=== PATIENT | male | born 1940 | race Caucasian/White ===

== ENCOUNTER → 2016-09-23 | Outpatient (CLI) | payer MEDICARE, OTHER | END | disposition home or self-care (01) | LOC: LAB.O 14:12 | PROVIDERS: ATTEND Family Medicine | DX: D45 Polycythemia vera (principal) ==

== ENCOUNTER → 2016-12-21 | Outpatient (CLI) | payer MEDICARE, OTHER ==
--- NOTE | 2016-12-22 11:13 | MRI ---
MRI left knee without contrast INDICATION: Knee pain no specific injury chronic initial encounter TECHNIQUE: Noncontrast MR imaging left knee standard protocol FINDINGS: Large joint effusion with synovitis/debris. There is a diffuse ill-defined chronic appearing interstitial tear with mucoid degeneration/ganglion formation involving the ACL. There is diffuse interstitial degeneration of the PCL but no complete rupture. No acute pivot shift injury. Extensor tendons demonstrate mild tendinosis without rupture. There is prepatellar and superficial infrapatellar bursal edema. There is advanced osteoarthrosis of the medial tibiofemoral compartment with diffuse grade 4 chondrosis subchondral cystic changes and edema. Diffuse degenerative tear medial meniscus with volume loss and delamination of the posterior horn. Partial medial meniscal extrusion. Diffuse degenerative change lateral meniscus as well. Prominent marginal osteophytes. Probable small intra-articular body along the PCL coronal series 701 image #29. Additional small body anterior midline coronal series 701 image 15. Joint space narrowing is most advanced in the medial tibiofemoral compartment. There is grade 4 chondral fissuring in the medial patellar facet with more generalized lower grade multifocal chondrosis in the remainder of the patellofemoral joint with joint line osteophytes. IMPRESSION: Large joint effusion with synovitis Several small intra-articular bodies anterior and posterior midline Advanced osteoarthrosis medial tibiofemoral compartment with lower grade osteoarthrosis in the remainder of the knee Diffuse degenerative tear medial meniscus with partial extrusion Mild degenerative changes lateral meniscus Chronic interstitial partial tear ACL with mucoid degeneration/ganglion formation Previous interstitial partial tear PCL with interstitial increased signal. Electronically signed by: Marcelino Paredes MD 12/22/2016 11:12 AM CDT
--- NOTE | 2016-12-22 11:50 | MRI ---
MRI right knee without contrast INDICATION: Knee pain chronic osteoarthrosis TECHNIQUE: Noncontrast MR imaging right knee FINDINGS: Large joint effusion with synovitis. Prepatellar and superficial infrapatellar bursal edema. Minimal lateral patellar tracking. Multifocal grade 4 chondrosis throughout the patella with multifocal mild subchondral edema. Interstitial mucoid degeneration of the ACL and mild degenerative signal within the PCL indicating remote partial tears. Diffuse grade 4 chondrosis with subchondral edema and cystic changes in the medial tibiofemoral compartment. Diffuse degenerative tear medial meniscus with volume loss. Multifocal intraosseous cystic change/ganglion formation midline tibial plateau related to the ACL attachment. Mild multifocal extensor tendinosis. Diffuse degenerative horizontal cleavage tear lateral meniscus with free edge fraying and mild truncation. Multifocal chondral fissuring up to grade 4 in the lateral tibiofemoral compartment. Collateral ligaments are intact. IMPRESSION: Tricompartmental chondrosis and osteoarthrosis right knee most severe in the medial tibiofemoral compartment Large joint effusion with synovitis Degenerative meniscal tears medial and lateral Previous interstitial partial tear ACL with interstitial mucoid degeneration/ganglion formation Mild remote interstitial injury PCL Electronically signed by: Marcelino Paredes MD 12/22/2016 11:49 AM CDT
== END | disposition home or self-care (01) ==
LOC: MRI 10:55
PROVIDERS: ATTEND Specialist
DX: M17.0 Bilateral primary osteoarthritis of knee (principal)

== ENCOUNTER → 2017-07-17 | Outpatient (CLI) | payer MEDICARE, OTHER | LOC: GMAM 14:45 | PROVIDERS: ATTEND Family Medicine | DX: E29.8 Other testicular dysfunction (principal); Z12.5 Encounter for screening for malignant neoplasm of prostate | CPT/HCPCS: 84403; G0103 ==

== ENCOUNTER → 2017-07-27 | Outpatient (CLI) | payer MEDICARE, OTHER | LOC: LAB.O 14:45 | PROVIDERS: ATTEND Family Medicine | DX: D75.1 Secondary polycythemia (principal) ==

== ENCOUNTER → 2018-02-07 | Outpatient (CLI) | payer MEDICARE, OTHER | LOC: GMAM 15:03 | PROVIDERS: ATTEND Family Medicine | DX: E29.8 Other testicular dysfunction (principal) ==

== ENCOUNTER → 2018-08-09 | Outpatient (CLI) | payer MEDICARE, OTHER | LOC: GMAM 12:31 | PROVIDERS: ATTEND Family Medicine | DX: E29.1 Testicular hypofunction (principal); Z12.5 Encounter for screening for malignant neoplasm of prostate | CPT/HCPCS: 84403; G0103 ==

== ENCOUNTER → 2018-08-16 | Outpatient (CLI) | payer MEDICARE, OTHER ==
--- NOTE | 2018-08-17 08:31 | CT ---
EXAM: Chest w/Contrast CLINICAL HISTORY: ABNORMAL CHEST XRAY COMPARISON STUDY: None. TECHNICAL: Post contrast CT images were performed through the chest. Sagittal and coronal reconstructions were acquired. FINDINGS: Soft tissue or mediastinal windows demonstrate no mass or lymphadenopathy. The heart is not enlarged. The aorta is non-dilated. There is no sign of an aortic dissection. The pulmonary arterial system as imaged is negative. The limited images of the upper abdomen are negative. Pulmonary parenchymal windows show no mass, consolidation, interstitial pulmonary edema, or pleural effusion. There are mild diffuse age-appropriate degenerative changes of the thoracic spine. IMPRESSION: NEGATIVE CT CHEST WITH CONTRAST. This exam was performed according to our departmental dose-optimization program, which includes automated exposure control, adjustment of the mA and/or kV according to patient size and/or use of iterative reconstruction technique. Electronically signed by: Jayjay Tompkins MD 08/17/2018 8:28 AM CDT
== END ==
LOC: CT 10:30
PROVIDERS: ATTEND Family Medicine
DX: R91.8 Other nonspecific abnormal finding of lung field (principal); D75.1 Secondary polycythemia

== ENCOUNTER → 2018-09-17 | Outpatient (CLI) | payer MEDICARE, OTHER | LOC: GMAM 14:27 | PROVIDERS: ATTEND Family Medicine | DX: R79.9 Abnormal finding of blood chemistry, unspecified (principal) ==

== ENCOUNTER → 2019-02-21 | Outpatient (CLI) | payer MEDICARE, OTHER | LOC: LAB.O 15:13 | PROVIDERS: ATTEND Family Medicine | DX: D75.1 Secondary polycythemia (principal) ==

== ENCOUNTER → 2019-10-10 | Outpatient (CLI) | payer MEDICARE, OTHER | LOC: GMAM 17:49 | PROVIDERS: ATTEND Family Medicine | DX: L02.91 Cutaneous abscess, unspecified (principal) ==

== ENCOUNTER → 2019-11-19 | Outpatient (CLI) | payer MEDICARE, OTHER | LOC: GMAM 16:35 | PROVIDERS: ATTEND Family Medicine | DX: M15.0 Primary generalized (osteo)arthritis (principal) ==

== ENCOUNTER → 2019-11-25 | Outpatient (CLI) | payer MEDICARE, OTHER | LOC: GMAM 14:13 | PROVIDERS: ATTEND Family Medicine | DX: R06.02 Shortness of breath (principal); N40.1 Benign prostatic hyperplasia with lower urinary tract symptoms; R50.9 Fever, unspecified; R30.0 Dysuria ==

== ENCOUNTER → 2019-12-12 | Outpatient (CLI) | payer MEDICARE, OTHER ==
--- NOTE | 2019-12-12 13:39 | RAD ---
Frontal and sunrise patellar views of the right knee. Indication: PAIN IN RIGHT KNEE Comparison: None. Impression: Severe osteoarthritis of the medial knee compartment with [id number] appearance. Moderate osteoporotic changes lateral and patellofemoral compartments. No acute fracture identified. Electronically signed by: Darvin Olsen MD 12/12/2019 1:37 PM CDT
--- NOTE | 2019-12-12 13:40 | RAD ---
EXAM DESCRIPTION: Knee,Left 1 or 2 Views CLINICAL HISTORY: 79 years Male, PAIN IN LEFT KNEE COMPARISON: November 19, 2019 Findings: Two views/radiographs Location: Left knee No acute fracture or dislocation. Severe medial compartment narrowing with lateral tibial translation. Tricompartmental osteophytes. Osteopenia. IMPRESSION: Left knee osteoarthritis. No acute osseous abnormality identified. Electronically signed by: Rayshawn Matthews MD 12/12/2019 1:38 PM CDT
--- NOTE | 2019-12-12 13:43 | RAD ---
EXAM DESCRIPTION: Pelvis CLINICAL HISTORY: 79 years Male, HIP PAIN BILATERAL COMPARISON: None. Findings: One view(s)/radiograph(s) No acute fracture or dislocation. No focal soft tissue swelling. Mild bilateral hip osteoarthritis. Degenerative changes at the lumbosacral junction. Pelvic phleboliths. IMPRESSION: Mild bilateral hip osteoarthritis. No acute fracture. Electronically signed by: Rayshawn Matthews MD 12/12/2019 1:41 PM CDT
== END ==
LOC: RAD 08:06
PROVIDERS: ATTEND Orthopaedic Surgery
DX: M16.0 Bilateral primary osteoarthritis of hip (principal); M17.0 Bilateral primary osteoarthritis of knee; N40.1 Benign prostatic hyperplasia with lower urinary tract symptoms; R06.02 Shortness of breath; M81.0 Age-related osteoporosis without current pathological fracture

== ENCOUNTER → 2020-02-24 | Outpatient (CLI) | payer MEDICARE, OTHER | LOC: GMAM 16:59 | PROVIDERS: ATTEND Family Medicine | DX: R94.6 Abnormal results of thyroid function studies (principal); N40.1 Benign prostatic hyperplasia with lower urinary tract symptoms; E29.1 Testicular hypofunction; R73.9 Hyperglycemia, unspecified ==

== ENCOUNTER → 2020-03-03 | Outpatient (CLI) | payer MEDICARE, OTHER ==
--- NOTE | 2020-03-04 12:28 | MRI ---
EXAM DESCRIPTION: Brain w/wo Contrast: MRI. CLINICAL HISTORY: ABNORMAL RESULTS OF THYROID FUNCTION COMPARISON: None. TECHNIQUE: Multiplanar, high-field MRI unit, multiple sequences before and after 1 mL per 5 kg body weight, Dotarem gadolinium IV contrast. No adverse reactions. FINDINGS: The pituitary gland is normal size and signal. Occupies most of the sella. Uniform enhancement with no areas of non-enhancement or hyper enhancement. The pituitary infundibulum is in the midline with no displacement. No suprasellar mass. Normal signal and enhancement of the optic chiasm, distal optic tracts, and proximal optic nerves. Bilateral confluent hyperintense FLAIR and T2-weighted signal in the periventricular white matter frontal parietal and occipital lobes. Also multiple foci of similar signal in the subcortical white matter of the cerebral hemispheres. More predominance in the bilateral frontal lobes. No hemorrhage, no cerebral edema, no mass-effect. No abnormal contrast enhancement. Cortical sulci, ventricles, and other CSF and subdural spaces are normally configured for patients age. No effacement or displacement. No midline shift. Normal signal in the brainstem and basal ganglia. No abnormal contrast enhancement. IACs are showing no mass effect or abnormal enhancement. No fluid signal in the mastoid air cells bilaterally. Contour of the cerebellopontine angles is unremarkable with no abnormal contrast enhancement. Base of the cerebellar tonsils is above the foramen magnum. The paranasal sinuses are unremarkable. The bony calvarium negative has findings; thickening of the scalp most likely related to patient body habitus.. IMPRESSION: 1. Normal enhancement of the pituitary gland with no enlargement and no mass in the sella or suprasellar cistern. 2. Bilateral white matter changes most likely related to cerebral microvascular disease and aging, with more white matter lesions in the frontal lobes bilaterally. 3. Normal noncontrast MRI diffusion study with no evidence of significant ischemia or acute or subacute infarction. Electronically signed by: Ortiz Tavera MD 03/04/2020 12:26 PM CDT
== END ==
LOC: MRI 09:00
PROVIDERS: ATTEND Family Medicine
DX: R94.6 Abnormal results of thyroid function studies (principal); R90.82 White matter disease, unspecified